=== PATIENT | female | born 1985 | race Caucasian/White ===

== ENCOUNTER 2017-09-18 09:29 | Day surgery (SDC) | payer MEDICAID ==
[~2017-09-18] VITALS: Ht 154.9 cm; Wt 59.0 kg
[2017-09-18] MEDS ORDERED: MIDAZOLAM 2 MG/2 ML VIAL ONE (12:13)
[2017-09-18] MEDS ORDERED: LIDOCAINE MPF 1% 50 MG/5 ML VIAL ONE (12:13)
[2017-09-18] MEDS ORDERED: fentaNYL 0.05 MG/ML VIAL ONE (12:13)
[2017-09-18] MEDS ORDERED: LIDOCAINE 2% 100 MG/5 ML SYR IVP ONE (12:15)
[2017-09-18] MEDS ORDERED: diphenhydrAMINE 50 MG/ML VIAL ONE (12:16)
[2017-09-18] MEDS ORDERED: LIDOCAINE 2% 100 MG/5 ML UJET TP ONE (12:21)
== END 2017-09-18 13:53 | disposition home or self-care (01) ==
LOC: MDS 09:29 → MMU 09:30 → MDS 13:53
PROVIDERS: ATTEND Internal Medicine Gastroenterology
DX: D12.3 Benign neoplasm of transverse colon (principal); K21.9 Gastro-esophageal reflux disease without esophagitis; Z98.890 Other specified postprocedural states; Z88.2 Allergy status to sulfonamides; Z79.899 Other long term (current) drug therapy
CPT/HCPCS: 45380; 45385; J2250; J3010; J1200; J2001